=== PATIENT | female | born 1985 | race Caucasian/White ===

== ENCOUNTER 2022-05-20 17:46 | Emergency (ER) | payer OTHER ==
[~2022-05-20] VITALS: Ht 167.6 cm; Wt 64.4 kg
[2022-05-20] MEDS ORDERED: ATIVAN1 MG PO (18:02)
--- NOTE | 2022-05-20 19:05 | EKG ---
[facility] [address] [facility] [place] [address] Signed Normal sinus rhythm Nonspecific ST abnormality Abnormal ECG No previous ECGs available Confirmed by Eleazar Lopez MD () on 05/20/2022 7:05:39 PM Electronically Signed By: ELEAZAR LOPEZ MD 05/20/22 1905 PATIENT NAME: YOSI PALACIO Electrocardiogram DATE OF : 83 PHYSICIAN: ELEAZAR LOPEZ MD REPORT #: [id number] REPORT IS CONFIDENTIAL AND NOT TO BE RELEASED WITHOUT AUTHORIZATION
== END 2022-05-20 18:29 | disposition home or self-care (01) ==
LOC: ED 17:46
DX: F41.0 Panic disorder [episodic paroxysmal anxiety] (principal); Z88.1 Allergy status to other antibiotic agents
CPT/HCPCS: 93005; 93010; 99283-25; A9270-GY

== ENCOUNTER 2022-09-03 00:03 | Emergency (ER) | payer OTHER ==
[~2022-09-03] VITALS: Ht 162.6 cm; Wt 65.8 kg
[~2022-09-03 00:03] MED LIST: ATIVAN1 MG PO
[2022-09-03 00:43] LABS: BASOPHILS 0.6 % (0-2); EOSINOPHILS 1.3 % (0-6); HEMATOCRIT 32.7 % (35.0-50.0); MCH 32.2 (27-36); MCHC 33.6 g/dl (30-36); MCV 95.8 fl (81-99); MONOCYTES 5.9 % (0-12); NEUTROPHILS 71.2 % (39-80); PLATELET COUNT 238 K/uL (140-440); RBC 3.41 M/ul (4.3-5.7); RDW 13.4 (10.5-15.0)
[2022-09-03 00:58] LABS: ALBUMIN 2.7 g/dL (3.4-5.0); ANION GAP 15.7 (7-21); BILIRUBIN, TOTAL 0.2 ng/dL (0.2-1.0); BUN/CREATININE RATIO 10.6 (6.0-28.6); CALCIUM 7.1 mg/dL (8.5-10.1); CREATININE, SERUM 0.66 mg/dL (0.55-1.02); POTASSIUM 2.7 mmol/L (3.5-5.1); PROTEIN, TOTAL 5.4 g/dL (6.4-8.2)
[2022-09-03] MEDS ORDERED: ONDANSETRON ODT8 MG PO (01:10)
[2022-09-03 05:22] VITALS: BP 110/69
[2022-09-03] MEDS ORDERED: BUPROPION HCL150 MG (07:03)
[2022-09-03] MEDS ORDERED: WELLBUTRIN SR150 MG PO (07:05)
== END 2022-09-03 05:22 | disposition home or self-care (01) ==
LOC: ED 00:03 → EDBD 00:05 → ED 00:05
PROVIDERS: Family Medicine
DX: F10.129 Alcohol abuse with intoxication, unspecified (principal); E87.6 Hypokalemia
CPT/HCPCS: 36415; 80053; 85025; 96374; 99284-25; G0480; J2405; J3480; J7030

== ENCOUNTER 2022-09-03 06:12 | Emergency (ER) | payer OTHER ==
[~2022-09-03] VITALS: Ht 167.6 cm; Wt 61.2 kg
--- OUTSIDE RECORDS SUMMARY | ~2022-09-03 | XMS | Continuity of Care Document ---
Demographics + + + | Address | [address] | | | [place] [address] | + + + | Preferred Language | Unknown | + + + | Marital Status | Never | + + + | Religion Affiliation | Unknown | + + + | Race | White | + + + | Ethnic Group | Not or | + + + Author + + + | Author | [facility] | + + + | Organization | [facility] | + + + | Address | [address] [facility] | | | [place] [address] | + + + | Phone | | + + + Care Team Providers + + + + | Care Stunt Double Name | Role | Phone | + + + + Unavailable | Unavailable | + + + + Unavailable | Unavailable | + + + + Allergies and Intolerances + + + + + | date | description | facility | type | + + + + + | (no date) | Azithromycin | [facility] (unknown) | [facility] | | + + + + + | (no date) | Azithromycin | [facility] | (unknown) | | | | Hospital | | + + + + + | (no date) | Azithromycin | [facility] | (unknown) | | | | Hospital | | + + + + + Encounters No information. Functional Status No information. Immunizations No information. Medications + + + + | date | description | facility | + + + + | 2022-05-20 00:00 | LORAZEPAM | [facility] | + + + + Problems + + + + | date | description | facility | + + + + | 2022-05-20 00:00 | Panic disorder | [facility] | + + + + | 2022-05-20 00:00 | Anxiety | [facility] | + + + + | 2022-05-20 17:47 | PANIC DISORDER [EPISODIC | [facility] | | | PAROXYSMAL ANXIETY] | | + + + + | 2022-05-20 17:47 | OTHER CHEST PAIN | [facility] | + + + + | 2022-05-20 17:47 | ALLERGY STATUS TO OTHER | [facility] | | | ANTIBIOTIC AGENTS STATUS | | + + + + | 2022-07-16 09:38 | PAIN IN RIGHT FINGER(S) | [facility] | + + + + | 2022-08-03 17:41 | PAIN IN RIGHT FINGER(S) | [facility] | + + + + | 2022-08-03 17:41 | DISP FX OF DISTAL PHALANX | [facility] | | | OF RIGHT LITTLE FINGER, | | + + + + | 2022-08-27 15:41 | MALLET FINGER OF RIGHT | [facility] | | | FINGER(S) | | + + + + Procedures No information. Results/Labs No information. Social History + + + + | date | description | facility | + + + + | 2022-05-20 00:00 | Unknown if ever smoked | [facility] | + + + + Vital Signs + + + +---------+ | date | measurement | value | units | + + + +---------+ | 2022-05-20 00:00 | BMI | 22.9 | kg/m2 | + + + +---------+ | 2022-05-20 00:00 | BP_diastolic | 84 | mmHg | + + + +---------+ | 2022-05-20 00:00 | BP_systolic | 124 | mmHg | + + + +---------+ | 2022-05-20 00:00 | heart_rate | 76 | /min | + + + +---------+ | 2022-05-20 00:00 | height_metric | 167.64 | cm | + + + +---------+ | 2022-05-20 00:00 | height_standard | 66 | in | + + + +---------+ | 2022-05-20 00:00 | o2_saturation | 97 | % | + + + +---------+ | 2022-05-20 00:00 | respiration_rate | 19 | /min | + + + +---------+ | 2022-05-20 00:00 | temperature_metric | 36.89 | C | | | | | | + + + +---------+ | 2022-05-20 00:00 | | 98.4 | F | | | temperature_standar | | | | | d | | | + + + +---------+ | 2022-05-20 00:00 | weight_metric | 64.41 | kg | + + + +---------+ | 2022-05-20 00:00 | weight_standard | 142 | lb | + + + +---------+"
[~2022-09-03 06:12] MED LIST changes: +ONDANSETRON ODT8 MG PO
--- OUTSIDE RECORDS SUMMARY | 2022-09-03 06:14 | XMS ---
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 - 2 Visits in 30 Days CARE PROVIDERS -Ray- Dentist: [facility] PHONE: [phone] [facility] PHONE: Unknown Fran has no Care Guidelines for this patient. Yamileth VISIT COUNT (12 MO.) [address] [place] [address] TOTAL 3 NOTE: Visits indicate total known visits. ED/UCC VISIT TRACKING (12 MO.) 09/03/2022 06:12 [facility] TYPE: Emergency COMPLAINT: - SOB, DIZZINESS 09/03/2022 00:05 [facility] TYPE: Emergency COMPLAINT: - INTOXICATED 05/20/2022 17:47 [facility] TYPE: Emergency COMPLAINT: - ANXIETY DIAGNOSES: - Allergy status to other antibiotic agents - Other chest pain - Panic disorder [episodic paroxysmal anxiety] INPATIENT VISIT TRACKING (12 MO.) No inpatient visits to display in this time frame [id number]
[2022-09-03] MEDS ORDERED: BUPROPION HCL150 MG ×2 (07:03)
[2022-09-03] MEDS ORDERED: WELLBUTRIN SR150 MG PO (07:05)
[2022-09-03 08:34] VITALS: BP 112/72
--- NOTE | 2022-09-03 22:52 | EKG ---
[facility] [address] [facility] [place] [address] Signed Sinus rhythm with short FL Otherwise normal ECG When compared with ECG of 20-MAY-2022 17:49, Nonspecific T wave abnormality no longer evident in Inferior leads Nonspecific T wave abnormality now evident in Lateral leads Confirmed by Eleazar Lopez MD () on 09/03/2022 10:51:59 PM Electronically Signed By: ELEAZAR LOPEZ MD 09/03/22 2252 PATIENT NAME: YOSI PALACIO Electrocardiogram DATE OF : 83 PHYSICIAN: ELEAZAR LOPEZ MD REPORT #: [id number] REPORT IS CONFIDENTIAL AND NOT TO BE RELEASED WITHOUT AUTHORIZATION
== END 2022-09-03 08:32 | disposition home or self-care (01) ==
LOC: ED 06:12
DX: R07.89 Other chest pain (principal); Z88.1 Allergy status to other antibiotic agents; Z79.899 Other long term (current) drug therapy
CPT/HCPCS: 36415; 71045; 71260; 80053; 84484; 84703; 85025; 85379; 93005; 93010; 99285 25; A9270; J2270; Q9967

== ENCOUNTER 2023-02-03 05:40 | Day surgery (SDC) | payer OTHER ==
[2023-01-26 08:47] VITALS: BP 117/93
[~2023-02-03] VITALS: Ht 167.6 cm; Wt 60.5 kg
[~2023-02-03 05:40] MED LIST changes: +BUPROPION HCL150 MG; +HYDROXYZINE PAM25 MG PO; +WELLBUTRIN SR150 MG PO
[2023-02-03 06:03] VITALS: BP 118/52
--- NOTE | 2023-02-03 07:25 | NUR ---
DS ROUNDS. PT GONE FOR PROCEDURE. CONNECTED WITH BLURB WRITER. PROVIDED HOSPITALITY. GAVE PAGER #4.
[2023-02-03 08:19] VITALS: BP 99/54
--- NOTE | 2023-02-03 08:22 | NUR ---
[facility]23 [facility] ARRIVED IN PACU AWAKE WITH NO C/O'S. L FOOT ELEVATED ON PILLOW. 0745 2VIEW XRAY DONE. PT SITTING UP IN BED SIPPING ON WATER. 0800 DC INSTRUCTIONS GIVEN. ALL QUESTIONS ANSWERED. STAND BY ASSIST WHILE CHANGING. 0805 AMBULATED TO BR WITH ONE PERSON ASSIST WITH POST OP SHOE ON. VOIDED. BACK IN W/C. 0810 LEFT VIA W/C. SCREW GIVEN TO PT.
--- NOTE | 2023-02-05 14:25 | OR ---
[facility] [address] [facility] [place] [facility] [place], [place] [address] Signed DATE OF OPERATION: 02/03/2023 SURGEON: Miguel Ledbetter DPM PREOPERATIVE DIAGNOSIS: Painful hardware, left first metatarsal. POSTOPERATIVE DIAGNOSIS: Painful hardware, left first metatarsal. PROCEDURE: Removal of painful hardware, left first metatarsal. FISH AND WILDLIFE SCIENTIFIC AID SURGEON: Teresa Garcias DPM. ANESTHESIA: IV general with local block, left foot. PIPELINES MANAGER: [place]. SPECIMEN TO PATHOLOGY: None. PROCEDURE IN DETAIL: The patient was brought to the operating room and placed on the table in the supine position. Anesthesia Department administered IV sedation after which a local block was given to the left foot using a total of 7 mL 1:1 mixture, 2% lidocaine plain and 0.5% ropivacaine plain. The left leg and foot were then prepped and draped in the usual sterile manner and an Esmarch was used for hemostasis. Attention was initially directed to the dorsal/medial aspect left first metatarsal head directly over the prominent bump from the screw. The incision was approximately 1 cm in length, full-thickness through the dermis and deepened through subcutaneous tissue and fascia to expose the screw head. Once the screw head was exposed, screwdriver was used to remove the screw. No remaining hardware noted. The surgical site then closed using 5-0 nylon monofilament suture. Electronically Signed By: MIGUEL LEDBETTER DPM 02/05/23 1425 PATIENT NAME: YOSI PALACIO OPERATIVE REPORT DATE OF : 83 REPORT #: [id number] PHYSICIAN: MIGUEL LEDBETTER DPM PCP: HETAL MARKHAM MD REPORT IS CONFIDENTIAL AND NOT TO BE RELEASED WITHOUT AUTHORIZATION [address] [place], [place] [address] Signed INTRAOPERATIVE COMPLICATIONS: None. ESTIMATED BLOOD LOSS: Less than 5 mL. The patient tolerated the procedure and the anesthesia well and left the operating room with vital signs stable and vascular status intact to the left foot as evidenced by hyperemia with removal of the Esmarch. Dressings applied consisting of Adaptic, Betadine-soaked gauze, dry gauze, Flexicon, and Coban for mild compression. BETZAIDA Mei/MODL /[id number] Copies: ~ Electronically Signed By: MIGUEL LEDBETTER DPM 02/05/23 1425 PATIENT NAME: YOSI PALACIO OPERATIVE REPORT DATE OF : 83 REPORT #: [id number] PHYSICIAN: MIGUEL LEDBETTER DPM PCP: HETAL MARKHAM MD REPORT IS CONFIDENTIAL AND NOT TO BE RELEASED WITHOUT AUTHORIZATION
== END 2023-02-03 08:10 | disposition home or self-care (01) ==
LOC: DS 05:40 → OPS 05:40 → DS 07:30 → OPS 07:30
PROVIDERS: ATTEND Podiatrist Foot Surgery
PROC: 0SP Lower Joints, Removal (ICD-10-PCS; principal; 2023-02-03 07:00)
DX: T84.84XA Pain due to internal orthopedic prosthetic devices, implants and grafts, initial encounter (principal); F17.210 Nicotine dependence, cigarettes, uncomplicated; Y83.8 Other surgical procedures as the cause of abnormal reaction of the patient, or of later complication, without mention of misadventure at the time of the procedure
CPT/HCPCS: 01462; 36415; 73620; 84703; J0690; J1100; J1885; J2001; J2250; J2405; J2704; J2795; J3010; J7121

== ENCOUNTER 2023-03-18 13:05 | Emergency (ER) | payer OTHER ==
[~2023-03-18] VITALS: Ht 167.6 cm; Wt 63.7 kg
[2023-03-18] MEDS ORDERED: CYCLOBENZAPRINE10 MG PO (14:15)
[2023-03-18] MEDS ORDERED: HYDROCODON-ACE1 EA10 PO (14:15)
[2023-03-18 14:34] VITALS: BP 120/67
== END 2023-03-18 14:29 | disposition home or self-care (01) ==
LOC: ED 13:05
DX: S16.1XXA Strain of muscle, fascia and tendon at neck level, initial encounter (principal); S46.912A Strain of unspecified muscle, fascia and tendon at shoulder and upper arm level, left arm, initial encounter; X58.XXXA Exposure to other specified factors, initial encounter; Z88.1 Allergy status to other antibiotic agents
CPT/HCPCS: A9270; J1885

== ENCOUNTER 2023-10-12 06:00 | Day surgery (SDC) | payer OTHER ==
[2023-10-06 14:52] VITALS: BP 128/79
[~2023-10-12] VITALS: Ht 167.6 cm; Wt 61.8 kg
[~2023-10-12 06:00] MED LIST changes: +CYCLOBENZAPRINE10 MG PO; +HYDROCODON-ACE1 EA10 PO; +HYDROXYZINE HCL25 MG PO; +LACTATED RINGER'S 1,000 ML IV SCH
[2023-10-12 06:14] VITALS: BP 120/87
[2023-10-12] MEDS ORDERED: LIDOCAINE HCL 1% 5 ML SDV INJ ONE (07:00)
[2023-10-12] MEDS ORDERED: IBLOOD GLUCOSE TEST STRIP 1 EA TEST VI PRN ×2 (07:00→10:30)
[2023-10-12] MEDS ORDERED: CEFAZOLIN SODIUM 2 GM/20 ML SYR IV SCH (07:00)
--- NOTE | 2023-10-12 08:01 | NUR ---
PT NOT AVAILABLE FOR VISIT. PROVIDED PRAYER.
[2023-10-12] MEDS ORDERED: KETAMINE in NS 50 MG/5 ML SYR ONE (08:20)
[2023-10-12] MEDS ORDERED: fentaNYL citrate 100 MCG/2 ML VIAL ONE (08:20)
[2023-10-12] MEDS ORDERED: MAGNESIUM SULFATE 1 GM/2 ML VIAL ONE (08:21)
[2023-10-12] MEDS ORDERED: dexmedeTOMIDine HCl 200 MCG/2 ML VIAL ONE (08:21)
[2023-10-12] MEDS ORDERED: ondansetron HCL 4 MG/2 ML VIAL ONE (08:21)
[2023-10-12] MEDS ORDERED: propofoL 200 MG/20 ML VIAL ONE (08:21)
[2023-10-12] MEDS ORDERED: DEXAMETHASONE SOD PHOS 4 MG/ML VIAL ONE (08:21)
[2023-10-12] MEDS ORDERED: ROCURONIUM BROMIDE 50 MG/5 ML SYR ONE (08:22)
[2023-10-12] MEDS ORDERED: ACETAMINOPHEN 1,000 MG/100 ML VIAL ONE (08:22)
[2023-10-12] MEDS ORDERED: LIDOCAINE HCL 2% 5 ML SDV ONE (08:22)
[2023-10-12] MEDS ORDERED: SODIUM CHLORIDE 0.9% 40 ML IV ONE (08:34)
[2023-10-12] MEDS ORDERED: droPERidol 5 MG/2 ML VIAL ONE (08:38)
[2023-10-12] MEDS ORDERED: HYDROmorphone HCL 2 MG/ML VIAL ONE (08:41)
[2023-10-12] MEDS ORDERED: GLYCOPYRROLATE 1 MG/5 ML MDV ONE (09:58)
[2023-10-12] MEDS ORDERED: FLUORESCEIN SODIUM 500 MG/5 ML ML ONE (10:13)
[2023-10-12] MEDS ORDERED: SUGAMMADEX SODIUM 200 MG/2 ML ML ONE (10:17)
[2023-10-12] MEDS ORDERED: KETOROLAC TROMETHAMINE 30 MG/ML VIAL ONE (10:27)
[2023-10-12] MEDS ORDERED: fentaNYL citrate 50 MCG/ML SDV IV PRN (10:30)
[2023-10-12] MEDS ORDERED: ondansetron HCL 4 MG/2 ML VIAL IV PRN (10:30)
[2023-10-12] MEDS ORDERED: NALOXONE HCL 0.4 MG SYR IV PRN ×2 (10:30→11:00)
--- NOTE | 2023-10-12 10:46 | NUR ---
10/12/23 Scott6 Felicia Frey 1039-PATIENT ARRIVED TO PACU ON 6L MASK NONAROUSABLE RR EVEN. PATIENT SEMI BISHOP 3 LAP SITES INTACT AND PAPITO PAD CDI. SR HR 60. IVF INFUSING. 1044-PATIENT REACTIVE TO VERBAL STIMULI MOVES HEAD TO SIDE AND BRING HAND TO NOSE. ORIENTED TO PACU EYES CLOSED. NOT FOLLOWING COMMANDS. 6L MASK RR EVEN 100%
[2023-10-12] MEDS ORDERED: FAMOTIDINE 20 MG/ 2 ML VIAL IV PRN (11:00)
[2023-10-12] MEDS ORDERED: SIMETHICONE 125 MG TABLET CHEWABLE PO PRN (11:00)
[2023-10-12] MEDS ORDERED: ondansetron HCL 4 MG TAB PO PRN (11:00)
[2023-10-12] MEDS ORDERED: PROCHLORPERAZINE EDISYLATE 10 MG/2 ML VIAL IV PRN (11:00)
[2023-10-12] MEDS ORDERED: MORPHINE SULFATE 10 MG/ML VIAL IV PRN (11:00)
[2023-10-12] MEDS ORDERED: METOCLOPRAMIDE HCL 10 MG/2 ML SDV IV PRN (11:00)
[2023-10-12] MEDS ORDERED: OXYCODONE/APAP 5/325 TAB PO PRN (11:00)
[2023-10-12] MEDS ORDERED: MAGNESIUM HYDROXIDE/AL HYDROX 30 ML CUP PO PRN (11:00)
[2023-10-12 11:25] VITALS: BP 101/63
--- NOTE | 2023-10-12 11:46 | NUR ---
LE 1125-PT BACK TO ROOM FROM PACU ON RA. RECEIVED REPORT FROM SHAYY PEDERSEN. PT IS DROWSY. RESP EVEN AND UNLAORED. RATES PAIN 6/10. DENIES NAUSEA. ALL DRESSINGS WITH SMALL AMOUNT OF RED DRAINAGE. PT EATING ICE CHIPS AND CRACKERS. LE 1133-10ML OF STERILE WATER REMOVED FROM RÍOS BALLOON AND RÍOS CATH REMOVED. PT TOLERATED WELL. LE 1141-PAIN MEDICATION GIVEN PER EMAR. PUDDING AND WATER PROVIDED FOR PT. NO OTHER NEEDS AT THIS TIME. MOM AT BEDSIDE. CALL LIGHT WITHIN REACH.
[2023-10-12 12:31] VITALS: BP 103/64
--- NOTE | 2023-10-12 12:37 | NUR ---
1235-PT LAYING IN BED WITH EYES CLOSED. AWAKES EASILY AND ANSWERES QUESTIONS. STATES PAIN IS BETTER, UNABLE TO RATE IT AT THIS TIME. DENIES NAUSEA. DRESSINGS WITH SMALL AMOUNT OF RED DRAINAGE. NO OTHER NEEDS AT THIS TIME. CALL LIGHT WITHIN REACH. MOM AT BEDSIDE.
[2023-10-12] MEDS ORDERED: SIMETHICONE 125 MG TABLET CHEWABLE PO SCH (13:00)
[2023-10-12 13:31] VITALS: BP 113/65
--- NOTE | 2023-10-12 13:36 | NUR ---
PT LAYING IN BED WITH EYES CLOSED. OPENS EYES AND ANSWERS QUESTIONS. RATES PAIN 4/10 AND STATES THIS IS TOLERABLE. RESP EVEN AND UNLABORED. NO OTHER NEEDS AT THIS TIME. MOM AT BEDSIDE. CALL LIGHT WITHIN REACH.
--- NOTE | 2023-10-12 13:55 | NUR ---
1345-PT UP TO RESTROOM. GAIT STEADY AND TOLERATED WELL. PT VOIDS UNMEASURABLE AMOUNT. DR. HICKS GAVE VERBAL ORDER FOR PT TO DC WHEN READY. 1350-PT BACK TO BED. PT FEELING "WOOZY". PT LAYING BACK IN BED. WOULD LIKE MORE TIME. CALL LIGHT WITHIN REACH. MOM IN ROOM.
--- NOTE | 2023-10-12 14:25 | NUR ---
1417-PT STILL FEELING "WOOZY". PT IS DRINKING WATER. PT TOOK ZOFRAN SHE BROUGHT FROM HOME. STATES SHE WOULD LIKE MORE TIME. CALL LIGHT WITHIN REACH. MOM IN ROOM.
[2023-10-12 14:44] VITALS: BP 111/76
--- NOTE | 2023-10-12 15:08 | NUR ---
LE 1444-PT LAYING IN BED WITH EYES CLOSED. STILL FELLING A LITTLE "WOOZY". RATES PAIN 3/10 WHEN NOT MOVING. DRESSINGS WITH SMALL AMOUNT OF RED DRAINAGE. PT SLOWLY GETTING DRESSED. LE 1450-PT A LITTLE NAUSEATED WITH MOVING. ENCOURAGED PT TO MOVE SLOW AND TAKE GOOD DEEP BREATHS. LE 1455-WENT OVER DISCHARGE WITH PT AND MOM. ALL QUESTIONS ANSWERED. PT ENCOURAGED TO GO HOME AND EAT BEFORE TAKING A PAIN PILL. WENT OVER POST OP MEDICATIONS. PT AMBULATES TO WHEELCHAIR AND RIDE PROVIDED TO FRONT OF HOSPITAL WHERE MOM WAS WAITING WITH THE CAR.
--- NOTE | 2023-10-12 19:05 | OR ---
[facility] [address] [place], [place] [address] Signed DATE OF OPERATION: 10/12/2023 SURGEON: Elsa Ruff DO PREOPERATIVE DIAGNOSES: 1. Dysmenorrhea. 2. Adenomyosis. 3. Abnormal uterine bleeding. POSTOPERATIVE DIAGNOSES: 1. Dysmenorrhea. 2. Adenomyosis. 3. Abnormal uterine bleeding. PROCEDURES PERFORMED: Total laparoscopic hysterectomy, bilateral salpingectomy, cystoscopy. TICKET WRITER: Joan Burch MD ANESTHESIA: General. ESTIMATED BLOOD LOSS: 15 mL. DRAINS: Alejandro to gravity. COMPLICATIONS: None. SPECIMEN: Uterus and cervix as well as portion of fallopian tubes bilaterally. COMPLICATIONS: None. FINDINGS: Normal external genitalia with normal clitoris, urethral meatus, bilateral Egypt's, and Electronically Signed By: ELSA RUFF DO (JD) 10/12/23 1905 PATIENT NAME: YOSI PALACIO OPERATIVE REPORT DATE OF : [birth year] REPORT #: [id number] PHYSICIAN: ELSA RUFF DO (JD) PCP: HETAL MARKHAM MD REPORT IS CONFIDENTIAL AND NOT TO BE RELEASED WITHOUT AUTHORIZATION [facility] [address] [place] [place], [place] [address] Signed Bartholin's glands. Normal vagina and cervix. On laparoscopy, normal upper abdomen with normal ovaries bilaterally. There appears to be portions of the fallopian tubes bilaterally. Dense scarring of the bladder to the lower uterine segment that was able to be brought down without difficulty. Hemostasis and good apical support at the end of the procedure. On cystoscopy, normal bladder with bilateral ureteral jets. INDICATIONS: Ms. Palacio is very pleasant 38-year-old female with increasing dysmenorrhea and abnormal bleeding. Constellation of findings and symptoms support the diagnosis of adenomyosis. She has failed conservative measures and desires definitive treatment with removal of the uterus. Risks, benefits, and alternatives were discussed in detail with the patient. The patient understands and wished to proceed with the procedure. DESCRIPTION OF PROCEDURE: The patient was taken to the OR where time-out was performed to confirm correct patient and correct procedure. General anesthesia was adequately established. The patient was prepped and draped in dorsal lithotomy position with feet in Yellofin stirrups. ICPs were on and running and the patient received Ancef 2 g preoperatively. No heparin was indicated. A Alejandro catheter was inserted and noted to be latex-free. A weighted speculum was placed in the vagina. The anterior lip of the cervix was grasped with an Allis clamp. The cervix was gently dilated using Hegar dilators and a VCare uterine manipulator was placed without difficulty. Surgeon's gloves changed and attention was turned to the abdomen. Just inferior to the umbilicus, the skin was infiltrated with 0.25% Marcaine with epinephrine and a curvilinear incision was made using a surgical scalpel. The fascia was grasped with hemostats, elevated, and entered sharply. Stay suture of 0 Vicryl was placed in the superior and inferior edges of the fascial incision. The peritoneum was entered bluntly. Layo operative port was placed and pneumoperitoneum was established. Survey of the abdomen and pelvis was performed. A 5 mm assist port was placed in the left lower quadrant under direct visualization and an 8 mm expanding port was placed in the right lower quadrant under direct visualization. Pelvis was notable for significant scarring of the bladder to the lower uterine segment. It appears that she has had at least a partial bilateral salpingectomy, although there is some apparent remnant of the fallopian tubes bilaterally. Attention was turned to the left adnexum where the left utero-ovarian ligament was fulgurated and divided. Residual fallopian tube is elevated from the mesosalpinx and divided and sent to pathology for further evaluation. The process was repeated on the right with division and fulguration of the utero-ovarian ligament and excision of the remnant of the fallopian tube. The right round ligament was fulgurated and divided. The leaves of the broad ligament were divided and the posterior leaf was divided from the midportion of the round to the uterosacral ligament posteriorly. This dissection was carried across the posterior edge of the vaginal cup. The anterior leaf of the broad ligament was carried down from the midportion of the round to the scar tissue. This was noted to be Electronically Signed By: ELSA SNEED) DO FABIOLA 10/12/23 1905 PATIENT NAME: YOSI PALACIO OPERATIVE REPORT DATE OF : 83 REPORT #: [id number] PHYSICIAN: ELSA RUFF DO (JD) PCP: HETAL MARKHAM MD REPORT IS CONFIDENTIAL AND NOT TO BE RELEASED WITHOUT AUTHORIZATION [facility] [address] [place] [address] Signed somewhat filmy and is easily able to be seen across the serosa surface. The serosa surface was taken down. Uterine vessels were identified, fulgurated and divided. More dense scarring between the bladder and the uterus was appreciated and attention was then turned to the left side. The left round ligament was fulgurated and divided. The leaves of the broad ligament were divided in the same manner as the contralateral side. The uterine vessels were identified, fulgurated and divided with excellent hemostasis. Dissection was able to be completed under a bridge of tissue connecting the bladder to the lower uterine segment. The cervix was completely visualized through the vaginal cup. The scar tissue was carefully evaluated and the bladder was felt to be distal to the scar tissue. Very careful dissection layer by layer was performed releasing the scar from the lower uterine segment. The Alejandro catheter noted to have clear yellow fluid and no blood noted. No rent was appreciated in the bladder or other concern for bladder injury. Colpotomy was then performed using Sonicision device and the uterus and cervix were delivered and sent to pathology for further evaluation. Pneumoperitoneum was reestablished by placing a wet lap sponge into a glove and placing this into the vagina. A small amount of oozing was noted from paracervical vessels, this was made hemostatic with bipolar cautery. The pelvis was irrigated and found to be hemostatic. Colpotomy was reapproximated using V-Loc suture with an Endostitch device with careful attention to incorporate the uterosacral ligaments bilaterally as well as the vaginal epithelium with each bite. Good apical support was appreciated. A small amount of oozing was noted in the superior edge of the colpotomy. This was made hemostatic with judicious use of monopolar cautery. Once the pelvis was adequately hemostatic, Tisseel was applied to the cuff into the dissection sites. Pneumoperitoneum was reduced. Trocars were removed and infraumbilical fascia was reapproximated using 0 Vicryl. Skin was reapproximated using 3-0 Vicryl Rapide. Attention was then turned to cystoscopy. The Alejandro catheter was removed and a 70-degree cystoscope was placed in the urethral meatus and advanced under direct visualization in the bladder. Normal bladder with normal bladder dome, bladder contour and bilateral ureteral jets was appreciated. The bladder was drained. Alejandro catheter was reinserted. The sponge was removed from the vagina and the patient was taken to PACU in good and stable condition. Sponge, needle, and instrument counts were correct x2 at the end of procedure. Dr. Burch was present and participated in all portions of the procedure. DO JOSE ENRIQUE Emmanuel/MODL /[id number] Electronically Signed By: ELSA RUFF DO (JD) 10/12/23 1905 PATIENT NAME: YOSI PALACIO OPERATIVE REPORT DATE OF : [birth year] REPORT #: [id number] PHYSICIAN: ELSA RUFF DO (JD) PCP: HETAL MARKHAM MD REPORT IS CONFIDENTIAL AND NOT TO BE RELEASED WITHOUT AUTHORIZATION [facility] [address] [place] [address] [place], [place] [address] Signed Copies: ~ Electronically Signed By: ELSA RUFF DO (JD) 10/12/23 1905 PATIENT NAME: YOSI PALACIO OPERATIVE REPORT DATE OF : [birth year] REPORT #: [id number] PHYSICIAN: ELSA RUFF) PCP: HETAL MARKHAM MD REPORT IS CONFIDENTIAL AND NOT TO BE RELEASED WITHOUT AUTHORIZATION
--- NOTE | 2023-10-15 11:56 | PATH ---
[facility] [address] [place], [place] [address] Signed SPECIMEN(S): A UTERUS, CERVIX, BILAT TUBE PORTIONS SPECIMEN SOURCE: A. UTERUS, CERVIX, BILAT TUBE PORTIONS CLINICAL HISTORY: Adenomyosis, AUB. TLH, bilateral salpingectomy, cystoscopy. FINAL PATHOLOGIC DIAGNOSIS: Uterus, cervix and tube portions: - Cervix: Nabothian cysts, negative for atypia or dysplasia. - Uterus: - Benign endometrium, negative for atypia and hyperplasia. - Focal adenomyosis. - Tubular structures: Morphologic features consistent with blood vessels with no fallopian tube tissue identified. NA MICROSCOPIC EXAMINATION: Histologic sections of all submitted blocks are examined by light microscopy. These findings, together with the gross examination, support the pathologic diagnosis. GROSS DESCRIPTION: The specimen, labeled and designated "Pricila Stacy, uterus, cervix, bilateral tubes," is received in formalin and consists of uterus, attached cervix and two detached tubular fragments. Uterine cervix measures 9.3 x 6.2 x 4.0 cm and weighs 105 g. Serosa pink-york smooth. Cervix measures 3.7 x 3.0 cm. The ectocervix pink-york smooth. External os is slit-like and patent measuring 1.3 cm in greatest dimension. Specimen is open reveal pink-york, velvety smooth endometrium measuring 4.3 x 2.7 cm. Myometrium measures 2.2 cm. Endometrial thickness ranging size from 0.1 to 0.2 cm. Specimen is sectioned to reveal no gross identifiable lesions from areas. First possible tubular fragment measures 3.3 cm in length by 0.4 cm greatest diameter. Specimen congested otherwise grossly unremarkable; second tubular fragment measures 1.5 cm in length by 0.4 cm in greatest diameter and is congested, otherwise grossly unremarkable. Pilot Plant Technician sections submitted as dictated. Cassette A1 represent section cervix cassette' A2 open claims representative section of PATIENT NAME: YOSI STACY PATHOLOGY DATE OF : 83 REPORT #: [id number] PHYSICIAN: [facility] PCP: HETAL MARKHAM MD REPORT IS CONFIDENTIAL AND NOT TO BE RELEASED WITHOUT AUTHORIZATION [facility] [address] [place], [place] [address] Signed endometrium-myometrium; cassette A3 entire first described tubular fragment; cassette A4 entire second described tubular fragment (under the direct supervision of a pathologist) The Gross Description was prepared using a voice recognition system. The report was reviewed for accuracy; however, sound-alike word errors, addition and/or deletions may occur. If there is any question about this report, please contact Client Services. ADDITIONAL NOTES: Immunohistochemical and/or in situ hybridization studies if performed in this case included appropriate positive controls that reacted as expected. This test was developed and its performance characteristics determined by [facility]. It has not been cleared or approved by the U.S. Food and Drug Administration. The FDA has determined that such clearance or approval is not necessary. This test is used for clinical purposes. It should not be regarded as investigational or for research. [facility] is certified under the Clinical Laboratory Improvement Amendments of 1988 (CLIA) as qualified to perform high complexity clinical laboratory testing. PERFORMING LABORATORY: Technical component was performed by [facility], [address] [place] [address] (CLIA# [id number]). Professional interpretation was performed by [facility] - [facility], [address] [facility] [address] (CLIA#: [id number]). Diagnostician: Brenda Gonsalez MD Pathologist Electronically Signed 10/15/2023 Copies: ~ PATIENT NAME: YOSI STACY PATHOLOGY DATE OF : [birth year] REPORT #: [id number] PHYSICIAN: MARK FAIRCHILD PCP: HETAL MARKHAM MD REPORT IS CONFIDENTIAL AND NOT TO BE RELEASED WITHOUT AUTHORIZATION
== END 2023-10-12 15:00 | disposition home or self-care (01) ==
LOC: DS 06:00
PROVIDERS: ATTEND Obstetrics & Gynecology
PROC: 0UT94ZZ Resection of Uterus, Percutaneous Endoscopic Approach (ICD-10-PCS; principal; 2023-10-12 07:30)
PROC: 0UB74ZZ Excision of Bilateral Fallopian Tubes, Percutaneous Endoscopic Approach (ICD-10-PCS; 2023-10-12 07:30)
DX: N80.03 Adenomyosis of the uterus (principal); N88.8 Other specified noninflammatory disorders of cervix uteri; N94.6 Dysmenorrhea, unspecified; N93.9 Abnormal uterine and vaginal bleeding, unspecified; F17.290 Nicotine dependence, other tobacco product, uncomplicated; Z88.1 Allergy status to other antibiotic agents; Z91.040 Latex allergy status
CPT/HCPCS: 00840; 88307; A9270; J0131; J0690; J1100; J1170; J1790; J1885; J2001; J2405; J2704; J3010; J3475; J3490